=== PATIENT | male | born 1995 | race Caucasian/White ===

== ENCOUNTER 2024-02-08 17:51 | Emergency (ER) | payer SELFPAY ==
[2024-02-08 17:56] VITALS: BMI 38.7
[2024-02-08] MEDS ORDERED: DIPHTH,PERTUSS(ACELL),TET 0.5 ML DISP.SYRIN IM ONE (18:30)
[2024-02-08] MEDS: DIPHTH,PERTUSS(ACELL),TET 0.5 ML DISP.SYRIN IM ONE (18:42)
[2024-02-08 21:17] VITALS: BP 131/86; PULSE 74; RESP 16; TEMP 98
== END 2024-02-08 22:15 | disposition home or self-care (01) ==
LOC: FER 17:51
PROC: 0HQQXZZ Repair Finger Nail, External Approach (ICD-10-PCS; principal; 2024-02-08)
PROC: 3E0234Z Introduction of Serum, Toxoid and Vaccine into Muscle, Percutaneous Approach (ICD-10-PCS; 2024-02-08)
DX: S61.315A Laceration without foreign body of left ring finger with damage to nail, initial encounter (principal); S00.83XA Contusion of other part of head, initial encounter; Y04.8XXA Assault by other bodily force, initial encounter; Z23 Encounter for immunization
CPT/HCPCS: 70450-TC; 70486-TC; 90715; 99284-25